=== PATIENT | female | born 1970 ===

== ENCOUNTER 2018-01-21 15:16 | Emergency (ER) | payer MEDICAID ==
[2018-01-21 15:34] VITALS: BP 115/77; PULSE 82; RESP 18; TEMP 97.7; O2SAT 100
--- NOTE | 2018-01-21 17:15 | ED PDOC ---
HPI: CCC, URI, Sore Throat Time Seen by Provider: 01/21/18 16:35 Chief Complaint (Nursing): ENT Problem Chief Complaint (Provider): ENT Problem History Per: Patient History/Exam Limitations: no limitations Onset/Duration Of Symptoms: Days (x3) Additional Complaint(s): 47 y/o female with no significant past medical history who presents to the ED complaining of scratchy throat, watery eyes and itchy ears for x3 days. Patient states she has seasonal allergies and she took Benadryl but it made her tired and didn't relieve her symptoms so she came to the ED. Past Medical History Reviewed: Historical Data, Nursing Documentation, Vital Signs Vital Signs: Last Vital Signs Temp 97.7 F 01/21/18 15:32 Pulse 82 01/21/18 15:32 Resp 18 01/21/18 15:32 BP 115/77 01/21/18 15:32 Pulse Ox 100 01/21/18 15:32 - Medical History PMH: No Chronic Diseases - Surgical History Surgical History: No Surg Hx - Family History Family History: States: Unknown Family Hx - Immunization History Hx Influenza Vaccination: No - Home Medications Home Medications: Ambulatory Orders Medication Instructions Recorded Albuterol Sulfate [Albuterol 2 puff IH QID #1 inh 08/09/13 Sulfate Hfa] Loratadine [Claritin] 1 tab PO DAILY PRN #14 tab 08/09/13 Fexofenadine/Pseudoephedrine 1 each PO BID PRN #12 tab.er.12h 01/21/18 [Leila-D 12 Hour Tablet] - Allergies Allergies/Adverse Reactions: Allergies Allergy/AdvReac Type Severity Reaction Status Date / Time No Known Allergies Allergy Verified 01/21/18 15:32 Review of Systems ROS Statement: Except As Marked, All Systems Reviewed And Found Negative Eyes: Positive for: Other (watery) ENT: Positive for: Ear Pain (itchy), Throat Pain (scratchy) Physical Exam - Reviewed Nursing Documentation Reviewed: Yes Vital Signs Reviewed: Yes - Physical Exam Appears: Positive for: Well, Non-toxic, No Acute Distress Head Exam: Positive for: ATRAUMATIC, NORMOCEPHALIC Eye Exam: Positive for: EOMI, Normal appearance, PERRL ENT: Positive for: Normal ENT Inspection, Pharynx Is (normal), TM Is/Are (normal) Cardiovascular/Chest: Positive for: Regular Rate, Rhythm. Negative for: Murmur, Bradycardia, Tachycardia Respiratory: Positive for: Normal Breath Sounds. Negative for: Respiratory Distress Extremity: Positive for: Normal ROM. Negative for: Pedal Edema, Deformity Neurologic/Psych: Positive for: Alert, Oriented. Negative for: Motor/Sensory Deficits - ECG O2 Sat by Pulse Oximetry: 100 (RA) Pulse Ox Interpretation: Normal Medical Decision Making Medical Decision Making: Time: 17:20 Initial Impression: allergies Initial Plan: Discharged with prescription for leila. Diagnosis is seasonal allergies. Scribe Attestation: Documented by Hemant Goldberg, acting as a scribe for Joanna Byrd PA-C. Provider Scribe Attestation: All medical record entries made by the Scribe were at my direction and personally dictated by me. I have reviewed the chart and agree that the record accurately reflects my personal performance of the history, physical exam, medical decision making, and the department course for this patient. I have also personally directed, reviewed, and agree with the discharge instructions and disposition. Disposition - Clinical Impression Clinical Impression: Seasonal allergies - Patient ED Disposition Is Patient to be Admitted: No Counseled Patient/Family Regarding: Diagnosis, Need For Followup, Rx Given - Disposition Referrals: [facility] [Outside] Disposition: Routine/Home Disposition Time: 17:14 Condition: GOOD Prescriptions: Fexofenadine/Pseudoephedrine [Leila-D 12 Hour Tablet] 1 each PO BID PRN #12 tab.er.12h PRN Reason: Cough And Congestion Instructions: Seasonal Allergies in Adults Forms: [email or web address] ([place])
== END 2018-01-21 17:34 | disposition home or self-care (01) ==
LOC: H.ER 15:16
DX: J30.2 Other seasonal allergic rhinitis (principal)